=== PATIENT | male | born 2000 | race Two or more races ===

== ENCOUNTER 2024-12-01 11:59 | Emergency (ER) | payer SELFPAY ==
[2024-12-01 12:13] VITALS: BP 131/78; PULSE 65; RESP 16; TEMP 37; O2SAT 97; BMI 30.2
--- NOTE | 2024-12-01 12:21 | XR_ITS ---
Examination: CT brain head without contrast. 2-D sagittal coronal reconstructions Date and time of exam:December 01, 2024 at 12:32 PM Indications: Facial numbness dizziness today CTDI: vol (mGy):46.5 DLP: (mGycm):912 Technique: Multiple CT axial sections of the brain have been obtained, 5 mm slice thickness. Contrast has not been administered. 2-D sagittal, coronal reconstructions have been obtained Low dose protocols were performed. One or more of the following dose reduction techniques were used; automated exposure control, adjustment of the mA and/or KV according to patient size, use of iterative reconstruction technique. Findings: No significant ventricular enlargement. 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 No mass effect or midline shift Basal cisterns are not remarkable. Fourth ventricle is midline. Cranial vault intact. Impression: Negative for acute hemorrhage, mass effect or midline shift As clinically warranted, brain MRI follow-up would best assess for demyelinating disease, acute ischemic change
--- NOTE | 2024-12-01 12:22 | EDRME_ITS ---
Rapid Medical Screening Exam [facility] Arrival date/time: 12/01/24 11:59 24-year-old male with no known medical history presents to the emergency room with a chief complaint of numbness to his face, pressure in his head, loss of words, and difficulty speaking at times. Patient states this has been going on since . I have greeted and performed a focused initial assessment of this patient. A comprehensive ED assessment and evaluation of the patient, analysis of all test results, and completion of the medical decision making process will be conducted by additional ED providers. Chief Complaint: Dental/Oral/Throat Vital signs: Vital Signs Temperature 98.6 F 12/01/24 12:13 Pulse Rate 65 12/01/24 12:13 Respiratory Rate 16 12/01/24 12:13 Blood Pressure 131/78 H 12/01/24 12:13 Pulse Oximetry (%) 97 12/01/24 12:13 Oxygen Delivery Method Room Air 12/01/24 12:13 Vital signs reviewed by provider: Yes
[2024-12-01 13:11] LABS: Basophils % (Auto) 0 % (0-2.5); Eosinophils # (Auto) 0.1 Thou/mm3 (0.0-0.5); Eosinophils % (Auto) 1 % (0-10); Hemoglobin 16.1 g/dL (13.5-16.0); Immature Granulocytes % (Auto) 1 % (0-0); Immature Granulocytes Auto 0.05 Thou/mm3 (0.00-0.00); Lymphocytes % (Auto) 34 % (10-50); Mean Corpuscular Hemoglobin 29.4 pg (25.0-35.0); Mean Corpuscular Volume 84 fL (80-100); Monocytes # (Auto) 0.7 Thou/mm3 (0.0-0.8); Monocytes % (Auto) 8 % (0-12); Neutrophils % (Auto) 56 % (37-80); Nucleated Red Blood Cell % 0 /100 WBC (0); Platelet Count 221 Thou/mm3 (140-440); RDW Standard Deviation 35.8 fL (35.1-43.9); Red Blood Count 5.47 Miln/mm3 (4.50-5.90); White Blood Count 8.8 Thou/mm3 (3.8-10.6)
[2024-12-01 13:32] LABS: Alanine Aminotransferase 34 U/L (10-49); Albumin, Serum 4.6 gm/dL (3.5-5.0); Albumin/Globulin Ratio 2.1 (1.2-2.2); Alkaline Phosphatase 95 U/L (46-116); Anion Gap 7 (7-16); Aspartate Amino Transferase 24 U/L (0-34); BUN/Creatinine Ratio 15 Ratio (12-20); Bilirubin,Total 0.4 mg/dL (0.3-1.2); Blood Urea Nitrogen 17 mg/dL (9-23); Calcium 9.6 mg/dL (8.3-10.6); Calcium (Corrected) 9.6 mg/dL (8.5-10.1); Carbon Dioxide 28.8 mMol/L (20.0-31.0); Chloride 101 mMol/L (98-107); Creatinine (Component) 1.1 mg/dL (0.6-1.3); Estimated Creatinine Clearance 103.9 mL/min (>60); Free T4 (Free Thyroxine) 1.48 ng/dL (0.89-1.76); Globulin 2.2 gm/dL (2.3-3.5); Glucose 99 mg/dL (74-106); Osmolality,Calculated 275 (275-295); Potassium 4.2 mMol/L (3.4-5.1); Sodium 137 mMol/L (136-145); Thyroid Stimulating Hormone 1.93 uIU/mL (0.55-4.78); Total Protein 6.8 gm/dL (5.7-8.2); eGFR > 60 See Note
[2024-12-01 14:01] LABS: Collection Type, Urine Clean Catch; Squamous Epithelial Cell,Urine 0 /hpf (0-5)
[2024-12-01 14:06] LABS: Bilirubin,Urine Negative (Negative); Blood,Urine Negative (Negative); Clarity,Urine Clear (Clear/Hazy); Color,Urine Yellow (Lt Yel-Yel); Culture Indicated,Urine Not Indicated; Glucose, Urine Negative (Negative); Ketones,Urine Negative (Negative); Leukocyte Esterase,Urine Negative (Negative); Nitrite,Urine Negative (Negative); Protein,Urine Negative (Neg - Trace); RBC,Urine < 1 /hpf (0-3); Specific Gravity,Urine 1.017 (1.001-1.035); Urobilinogen,Urine Negative mg/dL (0.0-1.0); WBC,Urine < 1 /hpf (0-5)
[2024-12-01 14:25] LABS: Amphetamine/Methamp Scrn,U Negative (Negative); Barbiturate Screen,Urine Negative (Negative); Benzodiazepines Screen,Urine Negative (Negative); Benzoylecgonine Screen, Ur Negative (Negative); Fentanyl Screen,Urine Negative (Negative); Opiate Screen,Urine Negative (Negative); THC Screen,Urine Negative (Negative)
[2024-12-01 15:37] VITALS: BP 133/74; PULSE 54; RESP 16; TEMP 36.5; O2SAT 99
--- NOTE | 2024-12-01 16:04 | PD.EDADULT ---
ED General RME/HPI General Chief complaint: Dental/Oral/Throat Stated complaint: HARD TIME SWALLOWING , CHEST AND HEAD TIGHTNESS Time Seen by Provider: 12/01/24 15:58 Arrival date/time: 12/01/24 11:59 CC: Numbness around his mouth with loss of words difficulty speaking at time that developed into shortness of breath. HPI ongoing for approximately 1 month he had multiple absent episodes all of them resolve in a short period of time. Patient denies memory loss difficulty breathing headache nausea vomiting or diarrhea. No prior history of similar events. RME / HPI RME / HPI narrative: 12/01/24 11:59 24-year-old male with no known medical history presents to the emergency room with a chief complaint of numbness to his face, pressure in his head, loss of words, and difficulty speaking at times. Patient states this has been going on since . I have greeted and performed a focused initial assessment of this patient. A comprehensive ED assessment and evaluation of the patient, analysis of all test results, and completion of the medical decision making process will be conducted by additional ED providers. Related Data Previous Rx's ?Medication ?Instructions ?Recorded ibuprofen 600 mg tablet 600 mg PO Q6H #30 tabs 05/02/23 Allergies Allergy/AdvReac Type Severity Reaction Status Date / Time No Known Allergies Allergy Verified 12/01/24 12:01 Review of Systems Review of Systems Narrative Review of Systems: GEN: No fever, no chills, no weight loss EYES: No discharge, no visual changes, no pain HEENT: No ear pain, no congestion, no sore throat PULM: No shortness of breath, no cough, no congestion CV: No chest pain, no dyspnea on exertion, no palpitations GI: No nausea, no vomiting, no diarrhea, no pain, no constipation : No frequency, no urgency, no dysuria MUSC/SKEL: No joint pain, no back pain SKIN: No rash PSYCH: No hallucinations, no depression HEME/LYMPH: No easy bleeding or bruising tendencies NEURO: No weakness, no headache Past Medical History Past Medical History CARDIAC: Negative Congestive Heart Failure RESPIRATORY: Negative Chronic Obstructive Pulmonary Disease (COPD) GENITOURINARY: Negative Renal Disease ENDOCRINE: Negative Diabetes Mellitus Type 1 or Diabetes Mellitus Type 2 Social History SMOKING STATUS: Never smoker ED Exam Narrative Physical exam: [General: Not in any acute distress Head normocephalic HEENT: Eyes pupils are PERRLA EOMs are intact mouth pink moist membranes uvula is midline swallow symmetrical nose no rhinorrhea or epistaxis ears EACs are clear no otorrhea. All other subsystems of HEENT are within acceptable limits Neck is supple nontender Chest equal chest rise nontender to palpation Respiratory: Clear to auscultation no wheezes crackles or rubs CV: Rate rhythm is regular no murmurs rubs or clicks Abdomen is soft nontender no masses positive bowel sounds all 4 quadrants Back: No CVA tenderness no spinous process tenderness from cervical spine thoracic and lumbar spine Skin: Intact no petechiae rash induration ulceration or crepitus Extremities: Moving all extremity against resistance cap refill less than 2 seconds neurosensory intact Neuro: Awake alert oriented x3 Glascow coma 15 no focal deficits] cranial nerves II through XII are grossly intact. Course Quality Measures none Orders Category Date Time Status CT head/brain wo con Stat Exams 12/01/24 12:21 Completed CBC Stat Lab 12/01/24 12:55 Completed CMP [Comprehensive Metabolic Panel] Stat Lab 12/01/24 12:55 Completed Drug Screen,Urine Stat Lab 12/01/24 13:31 Completed Free T4 (Free Thyroxine) Stat Lab 12/01/24 12:55 Completed TSH [Thyroid Stimulating Hormone] Stat Lab 12/01/24 12:55 Completed UA, C/S IF [Urinalysis, C/S if Indicated] Stat Lab 12/01/24 13:31 Completed Vital Signs Vital signs: Vital Signs Temperature 98.6 F 12/01/24 12:13 Pulse Rate 65 12/01/24 12:13 Respiratory Rate 16 12/01/24 12:13 Blood Pressure 131/78 H 12/01/24 12:13 Pulse Oximetry (%) 97 12/01/24 12:13 Oxygen Delivery Method Room Air 12/01/24 12:13 [facility] Patient data External records reviewed:: [facility] previous records Clinical information provided by:: patient Social determinants that could affect healthcare access:: none Patient has the following chronic illnesses:: None How is presenting disease/condition affected by chronic disease/condition?: uneffected by Evaluation data The following diagnostics were reviewed and interpreted by me:: lab results and radiology exam(s) Lab and/or radiology exams considered but not ordered:: CBC shows no acute leukocytosis anemia thrombocytopenia CMP shows no acute electrolyte imbalances renal impairment transaminitis or T. bili elevation CT of the head is negative for any acute finding as interpreted by me read by radiology TSH is within acceptable limits Free T4 is within acceptable limits Urine is negative for UTI Urine talk screen is negative for illicit drugs. Interpretation Summary: Facial numbness I suspect is psychosomatic as opposed to organic. Patient advised to follow-up with a primary care provider. Medications Medications considered but not ordered:: None Medication administrations:: None Consultations Consultation(s) initiated? (list below): No Diagnosis Differential Diagnosis ED Complaint MDM: CVA TIA somatization Most likely diagnosis given after review of the tests above:: Face paresthesias Admission Indicated Admission indicated?: not indicated Explain why admission is indicated or not indicated:: Stable for outpatient follow-up Admission Request Was there a request for admission?: No Disposition Plan Disposition Plan: Discharge Discharge Attestation Discharge Attestation: The patient and all family members were given an opportunity to ask questions and understood the discharge instructions. Discharge instructions specifically effects, indications for sooner follow up or return to the emergency department, and the expected course of current diagnosis. Patient condition: Stable Medical Decision Making Differential Diagnosis Differential Diagnosis: CVA TIA somatization Lab Data 12/01/24 12:55 12/01/24 12:55 Labs: Lab Results 12/01/24 12/01/24 Range/Units 12:55 13:31 WBC 8.8 (3.8-10.6) Thou/mm3 RBC 5.47 (4.50-5.90) Miln/mm3 Hgb 16.1 H (13.5-16.0) g/dL Hct 46.0 (41.0-53.0) % MCV 84 (80-100) fL MCH 29.4 (25.0-35.0) pg MCHC 35.0 (31.0-37.0) g/dl RDW Std Deviation 35.8 (35.1-43.9) fL Plt Count 221 (140-440) Thou/mm3 Neut % (Auto) 56 (37-80) % Lymph % (Auto) 34 (10-50) % [place] % (Auto) 8 (0-12) % Eos % (Auto) 1 (0-10) % Baso % (Auto) 0 (0-2.5) % Neut # (Auto) 5.0 (1.8-7.7) Thou/mm3 Lymph # (Auto) 3.0 (1.0-4.8) Thou/mm3 [place] # (Auto) 0.7 (0.0-0.8) Thou/mm3 Eos # (Auto) 0.1 (0.0-0.5) Thou/mm3 Baso # (Auto) 0.0 (0.0-0.2) Thou/mm3 Immature Gran # (Auto) 0.05 H (0.00-0.00) Thou/mm3 Absolute Nucleated RBC 0.00 (0.00-0.00) Thou/mm3 Immature Gran % 1 H (0-0) % Nucleated RBC % 0 (0) /100 WBC Sodium 137 (136-145) mMol/L Potassium 4.2 (3.4-5.1) mMol/L Chloride 101 (98-107) mMol/L Carbon Dioxide 28.8 (20.0-31.0) mMol/L Anion Gap 7 (7-16) BUN 17 (9-23) mg/dL Creatinine 1.1 (0.6-1.3) mg/dL Estim Creat Clear Calc 103.9 (>60) mL/min eGFR > 60 (60 - ) See Note BUN/Creatinine Ratio 15 (12-20) Ratio Glucose 99 (74-106) mg/dL Calculated Osmolality 275 (275-295) Calcium 9.6 (8.3-10.6) mg/dL Corrected Calcium 9.6 (8.5-10.1) mg/dL Total Bilirubin 0.4 (0.3-1.2) mg/dL AST 24 (0-34) U/L ALT 34 (10-49) U/L Alkaline Phosphatase 95 (46-116) U/L Total Protein 6.8 (5.7-8.2) gm/dL Albumin 4.6 (3.5-5.0) gm/dL Globulin 2.2 L (2.3-3.5) gm/dL Albumin/Globulin Ratio 2.1 (1.2-2.2) TSH 1.93 (0.55-4.78) uIU/mL Free T4 1.48 (0.89-1.76) ng/dL Ur Collection Type Clean Catch Urine Color Yellow (Lt Yel-Yel) Urine Clarity Clear (Clear/Hazy) Urine pH 7.0 (5.0-7.0) Ur Specific [place] 1.017 (1.001-1.035) Urine Protein Negative (Neg - Trace) Urine Glucose (UA) Negative (Negative) Urine Ketones Negative (Negative) Urine Blood Negative (Negative) Urine Nitrite Negative (Negative) Urine Bilirubin Negative (Negative) Urine Urobilinogen (Auto) Negative (0.0-1.0) mg/dL Ur Leukocyte Esterase Negative (Negative) Urine RBC < 1 (0-3) /hpf Urine WBC < 1 (0-5) /hpf Ur Squamous Epith Cells 0 (0-5) /hpf Urine Bacteria None (None) Ur Culture Indicated? Not Indicated Urine Opiates Screen Negative (Negative) Urine Fentanyl Screen Negative (Negative) Ur Barbiturates Screen Negative (Negative) U Amphetamin/Meth Scrn Negative (Negative) U Benzodiazepines Scrn Negative (Negative) U Cocaine Metab Screen Negative (Negative) U Marijuana (THC) Screen Negative (Negative) Discharge Plan Plan Patient Disposition: HOME (Self Care) Patient condition on transfer: Stable Prescriptions/Referrals Prescriptions/Med Rec: No Action ibuprofen 600 mg tablet 600 mg PO Q6H Qty: 30 0RF Referrals: Pratima Giles PA-C [Primary Care Provider] - In 1 week Problem List Clinical Impression: Facial paresthesia Patient/Caregiver Discharge Instructions Education Materials: ED Paraesthesias Additional Instructions: Keep diary of these episodes follow-up with your primary care provider if there is a prolonged episode that does not resolve after hours return to the emergency room for reevaluation. Print Language: Vincentian Stand Alone Forms: Barbara Award Info., Patient Portal Info Letter LUIS/JESUS Supervising Physician EMIL Supervising Physician: Abdulaziz Oquendo ENP
== END 2024-12-01 16:15 | disposition home or self-care (01) ==
PROVIDERS: Nurse Practitioner Family; Emergency Provider Emergency Medicine; PCP Physician Assistant
DX: R20.2 Paresthesia of skin (principal); R20.0 Anesthesia of skin; R42 Dizziness and giddiness
CPT/HCPCS: 36415; 70450; 80053; 80307; 81001; 84439; 84443; 85025; 99284

== ENCOUNTER 2024-12-14 20:53 | Emergency (ER) | payer BC, SELFPAY ==
[2024-12-14 20:54] VITALS: BMI 13.8
[2024-12-14 22:01] VITALS: BP 156/95; PULSE 80; RESP 19; TEMP 36.9; O2SAT 98
--- NOTE | 2024-12-14 22:12 | PD.EDADULT ---
ED General RME/HPI General Chief complaint: General Adult/Misc Complain Stated complaint: LEFT ARM AND LEFT LEG NUMBNESS Time Seen by Provider: 12/14/24 20:57 Arrival date/time: 12/14/24 20:53 24-year-old male with a history of anxiety reports with complaints of a panic attack. Patient states that he was not able to breathe he has numbness and tingling in her left arm and bilateral legs. Patient was evaluated earlier today by his primary care provider and diagnosed with anxiety. Patient states that he was given a prescription for anxiety medicine but was unable to pick it up at the pharmacy. He denies any suicidal or homicidal ideations shortness of breath chest pain nausea or vomiting or abdominal pain. Patient also denies cardiac history Limitations: no limitations Related Data Previous Rx's ?Medication ?Instructions ?Recorded ibuprofen 600 mg tablet 600 mg PO Q6H #30 tabs 05/02/23 hydroxyzine HCl 50 mg tablet 50 mg PO BID PRN anxiety #30 tabs 12/14/24 Allergies Allergy/AdvReac Type Severity Reaction Status Date / Time No Known Allergies Allergy Verified 12/14/24 20:56 Review of Systems Constitutional Constitutional: Denies chills and Denies fever(s) Cardiovascular Cardiovascular: Denies chest pain, Denies diaphoresis, Denies dyspnea and Denies syncope Respiratory Respiratory: Denies cough and Denies dyspnea Gastrointestinal Gastrointestinal: Denies nausea and Denies vomiting Musculoskeletal Musculoskeletal: Denies arthralgias, Reports numbness and Reports tingling Integumentary/Breasts Skin/Breast: Denies unusual bruising and Denies wounds Neurologic Neurologic: Denies abnormal speech, Denies behavioral changes, Denies convulsions, Reports numbness, Denies syncope and Reports tingling Psychiatric Psychiatric: Reports abnormal sleep pattern, Reports anxiety, Denies behavioral changes, Denies homicidal ideation and Denies suicidal ideation Hematologic/Lymphatic Hematologic/Lymphatic: Denies easy bleeding and Denies easy bruising Past Medical History Past Medical History CARDIAC: Negative Congestive Heart Failure RESPIRATORY: Negative Chronic Obstructive Pulmonary Disease (COPD) GENITOURINARY: Negative Renal Disease ENDOCRINE: Negative Diabetes Mellitus Type 1 or Diabetes Mellitus Type 2 Social History SMOKING STATUS: Never smoker ED Exam General Limitations: Present no limitations General appearance: Present alert and in no apparent distress Head Head exam: Present atraumatic Eye Eye exam: Present normal appearance, PERRL and EOMI ENT ENT exam: Present normal exam, normal oropharynx and mucous membranes moist Neck Neck exam: Present normal inspection, full ROM and trachea midline Chest Chest inspection: Present normal inspection and symmetric chest wall rise Respiratory Respiratory exam: Present normal lung sounds bilaterally Cardiovascular Cardiovascular exam: Present regular rate, normal rhythm and normal heart sounds Abdominal Exam Abdominal exam: Present soft and normal bowel sounds Extremities Exam Extremities exam: Present normal inspection and full ROM Back Exam Back exam: Present normal inspection and full ROM Neurological Exam Neurological exam: Present alert, oriented X3 and CN II-XII intact Psychiatric Psychiatric exam: Present normal affect and normal mood Skin Skin exam: Present warm, dry, intact and normal color Course Course Course Narrative: Please 4-year-old male with a history of anxiety reports with panic attack. Patient is stable he has no suicidal or homicidal ideations he does not appear to be a harm to himself or others therefore he will be discharged home with a prescription for Atarax and advised to follow-up with his primary care provider Quality Measures none Orders Category Date Time Status hydrOXYzine HCL [Atarax] Med 12/14/24 22:11 Once 50 mg PO X1 ONE Vital Signs Vital signs: Vital Signs Temperature 98.4 F 12/14/24 22:01 Pulse Rate 80 12/14/24 22:01 Respiratory Rate 19 12/14/24 22:01 Blood Pressure 156/95 H 12/14/24 22:01 Pulse Oximetry (%) 98 12/14/24 22:01 Oxygen Delivery Method Room Air 12/14/24 22:01 MDM Patient data External records reviewed:: None Clinical information provided by:: patient Social determinants that could affect healthcare access:: none Patient has the following chronic illnesses:: anxiety How is presenting disease/condition affected by chronic disease/condition?: caused by Evaluation data The following diagnostics were reviewed and interpreted by me:: other (specify) (none) Lab and/or radiology exams considered but not ordered:: none Interpretation Summary: anxiety Medications Medications considered but not ordered:: none Medication administrations:: Atarax Consultations Consultation(s) initiated? (list below): No Diagnosis Differential Diagnosis ED Complaint MDM: Panic attack disorder versus anxiety Most likely diagnosis given after review of the tests above:: Anxiety Admission Indicated Admission indicated?: not indicated Explain why admission is indicated or not indicated:: Mild condition Admission Request Was there a request for admission?: No Disposition Plan Disposition Plan: Discharge Discharge Attestation Discharge Attestation: The patient and all family members were given an opportunity to ask questions and understood the discharge instructions. Discharge instructions specifically effects, indications for sooner follow up or return to the emergency department, and the expected course of current diagnosis. Patient condition: Stable Medical Decision Making Differential Diagnosis Differential Diagnosis: Panic attack disorder versus anxiety Discharge Plan Plan Patient Disposition: HOME (Self Care) Prescriptions/Referrals Prescriptions/Med Rec: New hydroxyzine HCl 50 mg tablet 50 mg PO BID PRN (Reason: anxiety) Qty: 30 0RF No Action ibuprofen 600 mg tablet 600 mg PO Q6H Qty: 30 0RF Problem List Clinical Impression: Anxiety Patient/Caregiver Discharge Instructions Discharge Activity: activity as tolerated Education Materials: ED Anxiety Reaction Additional Instructions: Take medication as directed follow-up with your primary care provider for further evaluation and treatment of your anxiety Print Language: Kazakh Stand Alone Forms: Barbara Award Info., Patient Portal Info Letter
[2024-12-14] MEDS: hydrOXYzine HCL 25 MG TABLET 50 MG PO (22:42)
== END 2024-12-14 22:30 | disposition home or self-care (01) ==
LOC: SERX 22:55
PROVIDERS: Emergency Provider Emergency Medicine; PCP Physician Assistant
DX: F41.9 Anxiety disorder, unspecified (principal)
CPT/HCPCS: 99282; A9270

== ENCOUNTER → 2024-12-16 | Outpatient (CLI) | payer BC, SELFPAY ==
--- NOTE | 2024-12-16 15:00 | XR_ITS ---
Examination: Duplex scan of the upper extremity, unilateral left complete Date and time of exam: December 16, 2024 1512 hrs. Indications: Left arm and hand pain beginning 5 days ago Technique: Duplex scan of the extremity veins using B-mode/grayscale imaging and Doppler spectral analysis and color flow Attention is directed to internal echogenicity, compression and augmentation involving these veins, color flow assessment, spectral analysis Findings: Major deep venous structures in the extremity demonstrate normal course and caliber. There is no evidence of deep vein thrombosis. Normal color flow and spectral analysis Impression: Negative for DVT..
[2024-12-16 15:55] LABS: Urea Breath Test Negative (Negative)
[2024-12-16 16:06] LABS: Free T4 (Free Thyroxine) 1.49 ng/dL (0.89-1.76); Thyroid Stimulating Hormone 2.49 uIU/mL (0.55-4.78)
== END | disposition home or self-care (01) ==
LOC: CDIM 14:27 → COPL 14:29
PROVIDERS: Referring Provider Nurse Practitioner Family; Visit Provider Nurse Practitioner Family
DX: R20.0 Anesthesia of skin (principal); R10.84 Generalized abdominal pain; Z83.49 Family history of other endocrine, nutritional and metabolic diseases
CPT/HCPCS: 36415; 83013; 83014; 84439; 84443; 93971

== ENCOUNTER → 2024-12-17 | Outpatient (CLI) | payer BC, SELFPAY ==
--- NOTE | 2024-12-17 09:12 | XR_ITS ---
Examination: Abdomen sonogram, complete Date and time of exam: December 17, 2024 0918 hrs. Indications: Generalized abdominal pain and distention 5 weeks. Technique: Multiple real-time grayscale transabdominal sonographic images of the abdomen have been obtained. Findings: Normal gallbladder Normal common bile duct 0.2 cm Pancreatic head 2.4 cm Aorta not enlarged Liver 14.6 cm smooth contour no focal liver lesions Normal hepatopedal portal venous flow Patent IVC Right kidney 11.7 cm renal cortex 1.6 cm Left kidney 9.8 cm cortex 2.7 cm Spleen 11.3 cm Impression: Negative examination
== END | disposition home or self-care (01) ==
DX: R10.84 Generalized abdominal pain (principal)
CPT/HCPCS: 76700

== ENCOUNTER → 2024-12-20 | Outpatient (CLI) | payer BC, SELFPAY ==
--- NOTE | 2024-12-20 15:22 | XR_ITS ---
Examination: PA lateral chest 2 views Technique one AP lateral chest 2 views Date and time: December 20, 2024 1555 hrs. Indications: Shortness of breath with hypertension diagnoses 8 weeks ago. Findings: Normal heart size Lungs are clear The osseous structures are intact Impression: No active disease
--- NOTE | 2024-12-20 16:13 | EKG_ITS ---
[facility] Test Date: 2024-12-20 Pat Name: RAUL CANCINO Department: Room: - Gender: Male Staff Psychologist: RT STUDENT : 2000 Requested By: Hayley Camilo Order Number: [id number] Reading MD: Hayley Camilo Measurements Intervals [place] Rate: 66 P: 40 SC: 158 QRS: 87 QRSD: 106 T: 39 QT: 405 QTc: 426 Interpretive Statements SINUS RHYTHM WITH SINUS ARRHYTHMIA No previous ECG available for comparison /store/S0/[id number]
== END | disposition home or self-care (01) ==
PROVIDERS: PCP Nurse Practitioner Family; Referring Provider Nurse Practitioner Family; Visit Provider Nurse Practitioner Family
DX: R06.02 Shortness of breath (principal); R05.9 Cough, unspecified
CPT/HCPCS: 71046; 93005